=== PATIENT | male | born 1985 | race American Indian/Alaskan Native ===

== ENCOUNTER 2020-10-07 05:05 | Emergency (ER) | payer SELFPAY ==
[2020-10-07 06:25] LABS: Basophils % (Auto) 0.7 % (0.0-1.8); Eosinophils # (Auto) 0.1 K/mm3 (0.0-0.4); Eosinophils % (Auto) 1.9 % (0.0-4.3); Hematocrit 45.7 % (35.5-45.6); Hemoglobin 15.7 gm/dl (11.8-15.2); Lymphocytes # (Auto) 1.8 K/mm3 (1.2-5.4); Mean Corpuscular HGB Conc 34 % (32-34); Mean Corpuscular Volume 91 fl (84-94); Monocytes # (Auto) 0.5 K/mm3 (0.0-0.8); Platelet Count 203 K/mm3 (140-440); Red Blood Count 5.02 M/mm3 (3.65-5.03); Red Cell Distribution Width 13.4 % (13.2-15.2)
[2020-10-07 07:01] LABS: Alanine Aminotransferase 39 units/L (7-56); Albumin 4.6 g/dL (3.9-5); BUN/Creatinine Ratio 9; Blood Urea Nitrogen 14 mg/dL (9-20); Calcium 8.7 mg/dL (8.4-10.2); Hemolysis Index 6
[2020-10-07] MEDS ORDERED: FAMOTIDINE 20 MG/2 ML INJ IV ONE (08:46)
[2020-10-07] MEDS ORDERED: ONDANSETRON 4 MG/2 ML INJ IV ONE (08:46)
[2020-10-07] MEDS ORDERED: fentaNYL 100 MCG/2 ML INJ IV ONE (08:46)
[2020-10-07] MEDS ORDERED: ALUM-MAG HYDROXIDE-SIMETHICONE 200-200-20MG/5ML ORAL LIQD 30 ML PO ONE (08:46)
[2020-10-07] MEDS ORDERED: SODIUM CHLORIDE 0.9% 1000 ML 1,000 ML IV ONE (08:46)
[2020-10-07] MEDS ORDERED: LIDOCAINE VISCOUS 2% 15 ML ORAL LIQD PO ONE (08:46)
--- NOTE | 2020-10-07 08:51 | Emergency Department Report ---
HPI - General Chief Complaint: GI Bleed Time Seen by Provider: 10/07/20 08:39 - HPI HPI: Room 3 The patient is a 35-year-old male present with chief complaint of nausea vomiting. Patient states symptoms began last night at approximate 01: 00 with nausea vomiting and hematemesis. The patient complains of pain in his throat and epigastric region stating he feels like he swallowed glass although the patient does not recall actually swallowing glass. Patient states he has been unable to hold anything down. Patient states his last bowel movement occurred approximately 2 hours ago and it was liquid stool green and brown in color. Patient denies melena. Patient planes of pain in the midepigastric region. Patient currently gives his abdominal pain a score of 10/10 ED Past Medical Hx - Past Medical History Previous Medical History?: Yes Hx Hypertension: Yes Additional medical history: Alcoholism - Surgical History Past Surgical History?: No - Family History Family history: no significant - Social History Smoking Status: Current Every Day Smoker (2/3 pack/day) Substance Use Type: None (Denies illicit drug use), Alcohol (Daily) - Medications Home Medications: Home Medications Medication Instructions Recorded Confirmed Last Taken Type Famotidine [Pepcid] 20 mg PO BID #30 tablet 10/07/20 Unknown Rx HYDROcodone/APAP 5-325 [[place] 1 - 2 each PO Q6HR PRN #10 tablet 10/07/20 Unknown Rx 5/325] Ondansetron [Zofran ODT TAB] 8 mg PO Q8HR #20 tab.rapdis 10/07/20 Unknown Rx ED Review of Systems ROS: Stated complaint: ALCOHOL/SWALLOWED GLASS/VOMITING BLOOD Other details as noted in HPI Constitutional: fever (?) Eyes: denies: eye pain ENT: throat pain Respiratory: no symptoms reported Cardiovascular: denies: chest pain Endocrine: no symptoms reported Gastrointestinal: abdominal pain, nausea, vomiting, hematemesis. denies: melena, hematochezia Genitourinary: denies: dysuria Musculoskeletal: denies: back pain Neurological: denies: headache Physical Exam - Physical Exam Vital Signs: Vital Signs 10/07/20 05:23 Temperature 97.7 F Pulse Rate 78 Respiratory 18 Rate Blood Pressure 139/92 O2 Sat by Pulse 97 Oximetry Physical Exam: GENERAL: The patient is well-developed well-nourished male lying on stretcher not appearing to be in acute distress. [] HEENT: Normocephalic. Atraumatic. Extraocular motions are intact. Patient has moist mucous membranes. NECK: Supple. Trachea midline CHEST/LUNGS: Clear to auscultation. There is no respiratory distress noted. HEART/CARDIOVASCULAR: Regular. There is no tachycardia. There is no gallop rub or murmur. ABDOMEN: Abdomen is soft, with tenderness to palpation in the suprapubic, right upper quadrant and epigastric region. Patient has normal bowel sounds. There is no abdominal distention. SKIN: There is no rash. There is no edema. There is no diaphoresis. NEURO: The patient is awake, alert, and oriented. The patient is cooperative. The patient has no focal neurologic deficits. The patient has normal speech MUSCULOSKELETAL: There is no evidence of acute injury. RECTAL: Guaiac negative, brown stool ED Course Vital Signs 10/07/20 05:23 Temperature 97.7 F Pulse Rate 78 Respiratory 18 Rate Blood Pressure 139/92 O2 Sat by Pulse 97 Oximetry - Reevaluation(s) Reevaluation #1: 10/07/20 11:37 Patient not orthostatic (see nursing notes) ED Medical Decision Making - Lab Data Result diagrams: 10/07/20 05:56 10/07/20 05:56 Laboratory Tests 10/07/20 10/07/20 10/07/20 05:56 05:56 05:56 WBC 4.6 RBC 5.02 Hgb 15.7 H Hct 45.7 H MCV 91 MCH 31 MCHC 34 RDW 13.4 Plt Count 203 Lymph % (Auto) 39.0 H [place] % (Auto) 11.0 H Eos % (Auto) 1.9 Baso % (Auto) 0.7 Lymph # (Auto) 1.8 [place] # (Auto) 0.5 Eos # (Auto) 0.1 Baso # (Auto) 0.0 Seg Neutrophils % 47.4 Seg Neutrophils # 2.2 Sodium 139 Potassium 3.8 Chloride 103.6 Carbon Dioxide 20 L Anion Gap 19 BUN 14 Creatinine 1.5 H Estimated GFR > 60 BUN/Creatinine Ratio 9 Glucose 126 H Calcium 8.7 Total Bilirubin 0.30 AST 39 ALT 39 Alkaline Phosphatase 66 Total Protein 7.4 Albumin 4.6 Albumin/Globulin Ratio 1.6 Lipase 34 Plasma/Serum Alcohol 0.12 H - Radiology Data Radiology results: report reviewed (CT abdomen pelvis), image reviewed (CT abdomen pelvis) [facility] [address] [place] [address] Cat Scan Report Signed Patient: JUAN BRUCE MR#: [id number] : 1985 Acct:[id number] Age/Sex: 35 / M ADM Date: 10/07/20 Loc: ED Attending Dr: Ordering Physician: MANISH FERREIRA MD Date of Service: 10/07/20 Procedure(s): CT abdomen pelvis w con Accession Number(s): [id number] cc: MANISH FERREIRA MD CT ABDOMEN AND PELVIS WITH CONTRAST INDICATION / CLINICAL INFORMATION: Epigastric pain 100 ml omni 300 . TECHNIQUE: Axial CT images were obtained through the abdomen and pelvis after 100 mL Omnipaque [address] scans at this location are performed using CT dose reduction for ALARA by means of automated exposure control. COMPARISON: None available. FINDINGS: LOWER CHEST: No significant abnormality. LIVER: No significant abnormality. BILIARY SYSTEM: No significant abnormality. PANCREAS: No significant abnormality. SPLEEN: No significant abnormality. ADRENALS: No significant abnormality. KIDNEYS and URETERS: No significant abnormality. STOMACH / BOWEL: No significant abnormality. The appendix is normal. PERITONEUM: No free fluid. No free air. No fluid collection. LYMPH NODES: No significant adenopathy. VASCULAR STRUCTURES: No significant abnormality. URINARY BLADDER: No significant abnormality. REPRODUCTIVE ORGANS: No significant abnormality. ADDITIONAL FINDINGS: None. SKELETAL SYSTEM: No significant abnormality. IMPRESSION: 1. No acute process identified within the abdomen or pelvis to account for patient's abdominal pain. Signer Name: Carlotta Mendoza MD Signed: 10/07/2020 10:35 AM Workstation Name: [id number] Transcribed By: [facility] Dictated By: Carlotta Mendoza MD Electronically Authenticated By: Carlotta Mendoza MD Signed Date/Time: 10/07/20 1035 DD/ 1031 TD/TT: Print Cancel - Differential Diagnosis Gastritis, peptic ulcer disease, pancreatitis, Critical care attestation.: If time is entered above; I have spent that time in minutes in the direct care of this critically ill patient, excluding procedure time. ED Disposition Clinical Impression: Acute abdominal pain, Gastritis Disposition: DC-01 TO HOME OR SELFCARE Is pt being admited?: No Does the pt Need Aspirin: No Condition: Stable Additional Instructions: Return to the emergency department should you develop worsening symptoms, inability to tolerate food or liquids, high fever or any other concerns Prescriptions: HYDROcodone/APAP 5-325 [[place] 5/325] 1 - 2 each PO Q6HR PRN #10 tablet PRN Reason: Pain Famotidine [Pepcid] 20 mg PO BID #30 tablet Ondansetron [Zofran ODT TAB] 8 mg PO Q8HR #20 tab.rapdis Referrals: FABIOLA MILAN MD [Staff Physician] - 3-5 Days (Dr. Milan is a sports trainer. Please follow-up with him for further evaluation) Forms: Accompanied Note Time of Disposition: 11:37 (d/c to family)
--- NOTE | 2020-10-07 10:40 | Cat Scan Report ---
CT ABDOMEN AND PELVIS WITH CONTRAST INDICATION / CLINICAL INFORMATION: Epigastric pain 100 ml omni 300 . TECHNIQUE: Axial CT images were obtained through the abdomen and pelvis after 100 mL Omnipaque [address] scans at this location are performed using CT dose reduction for ALARA by means of automated exposure control. COMPARISON: None available. FINDINGS: LOWER CHEST: No significant abnormality. LIVER: No significant abnormality. BILIARY SYSTEM: No significant abnormality. PANCREAS: No significant abnormality. SPLEEN: No significant abnormality. ADRENALS: No significant abnormality. KIDNEYS and URETERS: No significant abnormality. STOMACH / BOWEL: No significant abnormality. The appendix is normal. PERITONEUM: No free fluid. No free air. No fluid collection. LYMPH NODES: No significant adenopathy. VASCULAR STRUCTURES: No significant abnormality. URINARY BLADDER: No significant abnormality. REPRODUCTIVE ORGANS: No significant abnormality. ADDITIONAL FINDINGS: None. SKELETAL SYSTEM: No significant abnormality. IMPRESSION: 1. No acute process identified within the abdomen or pelvis to account for patient's abdominal pain. Signer Name: Carlotta Mendoza MD Signed: 10/07/2020 10:35 AM Workstation Name: [id number]
[2020-10-07] MEDS ORDERED: fentaNYL 100 MCG/2 ML INJ ONE (11:38)
[2020-10-07 11:55] VITALS: BP 130/89
== END 2020-10-07 11:55 | disposition home or self-care (01) ==
LOC: ED 05:05
DX: K29.70 Gastritis, unspecified, without bleeding (principal); R10.9 Unspecified abdominal pain; F17.200 Nicotine dependence, unspecified, uncomplicated; I10 Essential (primary) hypertension; Z79.899 Other long term (current) drug therapy; Z88.0 Allergy status to penicillin
CPT/HCPCS: 36415; 74177; 80053; 82271; 83690; 85025; 96361; 96374; 96375; 99284; J2405; J3010; J7030; Q9967; 80320; G0480